=== PATIENT | female | born 1970 | race Caucasian/White ===

== ENCOUNTER 2022-12-21 09:34 | Day surgery (SDC) | payer BC ==
[~2022-12-21 09:34] MED LIST: Lactated Ringers 1,000 ML IV SCH; Sodium Chloride 0.9% 10 ML Syringe FLUSH PRN; Sodium Chloride 0.9% 10 ML Syringe FLUSH SCH
[2022-12-21] MEDS ORDERED: Ondansetron 4 MG/2 ML SDV IVPUSH PRN (10:08)
[2022-12-21] MEDS ORDERED: Propofol 200 MG/20 ML SDV ONE ×3 (10:32→11:04)
[2022-12-21] MEDS ORDERED: Lidocaine 2% 5 ML SDV ONE (10:33)
== END 2022-12-21 12:15 | disposition home or self-care (01) ==
LOC: JD.SDS 09:34
PROVIDERS: ATTEND Surgery
DX: K62.1 Rectal polyp (principal); K64.8 Other hemorrhoids; R19.5 Other fecal abnormalities; Z98.890 Other specified postprocedural states; Z79.899 Other long term (current) drug therapy
CPT/HCPCS: 45380; J2704; J7120; 00811; J3490